=== PATIENT | male | born 1960 | race African-American/Black ===

== ENCOUNTER 2018-11-13 10:26 | Observation (INO) ==
--- NOTE | 2018-11-13 10:45 | Emergency Department Note ---
Disposition Clinical Impression: Hypertension Chest pain Qualifiers: Chest pain type: unspecified Qualified Code(s): R07.9 - Chest pain, unspecified Diabetes Qualifiers: Diabetes mellitus type: type 2 Diabetes mellitus meterman insulin use: without meterman use Diabetes mellitus complication status: without complication Qualified Code(s): E11.9 - Type 2 diabetes mellitus without complications Disposition: Admitted As Inpatient Condition: Fair Referrals: NONE,PCP [Primary Care Provider] - Forms: ED Satisfaction Letter Time of Disposition: 11:32 General Adult HPI - General Chief complaint: ED Arrhythmia/Palpitations Stated complaint: SVT Time Seen by Provider: 11/13/18 10:33 Source: patient, other Limitations: no limitations Nursing Notes Reviewed: Yes Vital Signs Reviewed: Yes - History of Present Illness HPI Narrative: I did speak with the patient and saw him immediately upon arrival and also spoke with the [facility] the patient is coming [facility] he has been since April and he has a history of hypertension but no history of coronary disease and he presents today with complaint of chest pressure which began between 9 and 9:15 this morning and began gradually and is constant and generalized with associated diaphoresis and dyspnea but no pleuritic aspect or radiation or any pain or swelling of the lower extremities. It is exertional. The patient reportedly from the [facility] had a heart rate of 202 bpm so they gave him atenolol as they did not have a nurse that came until 11:00 and then they recheck the pulse 20 minutes later and it was only down to 197 bpm and so they transported the patient here. The patient does not have a history of SVT but does have a history of irregular heartbeats. Social history: No smoking or alcohol. Family history: Positive for heart disease Pain Scale: 0 - Related Data Home Medications Medication Instructions Recorded Confirmed Aspirin [Lo-Dose Aspirin EC] 81 mg PO DAILY 11/13/18 11/13/18 Atenolol [Tenormin] 25 mg PO BID 11/13/18 11/13/18 BuPROPion SR (12 HR) [Wellbutrin 100 mg PO DAILY 11/13/18 11/13/18 SR] GlipiZIDE [Glucotrol] 5 mg PO BIDWM 11/13/18 11/13/18 Metformin HCl 1,000 mg PO BID 11/13/18 11/13/18 Omeprazole [PriLOSEC] 20 mg PO DAILY 11/13/18 11/13/18 Prazosin HCl [Minipress] 2 mg PO DAILY 11/13/18 11/13/18 Allergies Allergy/AdvReac Type Severity Reaction Status Date / Time No Known Allergies Allergy Verified 11/13/18 10:34 Review of Systems: Constitutional: No fever Vision: No blurred vision ENT: No rhinorrhea Respiratory: No cough Allergic: No allergies : No blood in urine GI: No blood in stool Hematologic: No bruising Dermatologic: No skin rash Musculoskeletal: No pain in the extremities Neuro: No numbness of the extremities at this time however initially did have a little bit of numbness of the left leg Past Medical History - Past Medical History Medical history: Reports: hypertension Psychiatric history: Reports: no psych history - Social History Smoking Status: Former smoker Smokeless Tobacco Status: No Alcohol use: Reports: none Drug use: Reports: none Physical Exam CONSTITUTIONAL: Alert and oriented X3, well-nourished, well appearing, in no apparent distress HEAD: Normocephalic; atraumatic. EYES: PERRL, no scleral icterus. NOSE: The nose is normal in appearance without rhinorrhea RESP: Normal chest excursion with respiration; breath sounds clear and equal bilaterally; no wheezes, rhonchi, or rales CARD: Regular rhythm, without murmurs, rub or gallop ABD: Non-distended; non-tender, soft,without rigidity, rebound or guarding SKIN: Normal for age and race; warm and dry; no apparent lesions EXTREMITIES: Pulses are 2 plus and equal times 4 extremities, no peripheral edema or calf muscle pain. - General Limitations: no limitations General appearance: alert, in no apparent distress Course Vital Signs Temperature 97.0 F L 11/13/18 10:28 Pulse Rate 80 11/13/18 10:28 Respiratory Rate 18 11/13/18 10:28 Blood Pressure 155/98 11/13/18 10:28 O2 Sat by Pulse Oximetry 98 11/13/18 10:28 Temperature 97.0 F L 11/13/18 10:28 Pulse Rate 75 11/13/18 11:06 Respiratory Rate 22 11/13/18 11:06 Blood Pressure 133/96 11/13/18 11:06 O2 Sat by Pulse Oximetry 97 11/13/18 11:06 Oxygen Delivery Oxygen Delivery Room Air Medical Decision Making - MDM Narrative Medical decision making narrative: I did review the patient's EKG showing normal sinus rhythm with a rate of 80 without acute ischemic change or evidence of arrhythmia or tachycardia. The patient's symptoms are concerning and recent in onset and for that reason initial evaluation will include troponin tests and chest x-ray and the patient will be admitted to the hospital for further cardiac evaluation. 1046 I rev the test results and second ECG showing NSR with rate of 73 and nonspec change in aVF. I spoke with Dr. Loaiza who accepts for admission 1130 - Medical Records Medical records reviewed: Yes I reviewed the patient's medical records. - Lab Data Lab results reviewed: Yes I reviewed the patient's lab results. Result diagrams: 11/13/18 10:32 11/13/18 10:32 Lab Results 11/13/18 11/13/18 Range/Units 10:32 10:32 WBC 7.5 (4.3-11.1) K/mcL RBC 4.46 (4.19-5.50) M/mcL Hgb 12.6 L (12.9-16.9) g/dL Hct 40.5 (37.5-50.1) % MCV 90.8 (83.0-100.0) fL MCH 28.3 (28.0-33.3) pg MCHC 31.1 L (31.6-35.5) g/dL RDW 12.5 (11.5-14.5) % Plt Count 335 (140-400) K/mcL MPV 10.4 (9.4-12.4) fL Sodium 140 (136-145) mEq/L Potassium 3.9 (3.5-5.1) mEq/L Chloride 98 (98-107) mEq/L Carbon Dioxide 28 (23-29) mEq/L BUN 12 (6-20) mg/dL Creatinine 1.10 (0.70-1.30) mg/dL Est GFR ( Amer) > 60 (> 60) Est GFR (Non-Af Amer) > 60 (> 60) BUN/Creatinine Ratio 11 (6-26) Glucose 260 H (70-105) mg/dL Calculated Osmolality 299 (280-300) Calcium 9.3 (8.6-10.3) mg/dL Troponin I < 0.03 (< 0.04) ng/mL - Radiology Data Radiology results reviewed: Yes I reviewed the patient's radiology results.
[2018-11-13 10:47] LABS: Hematocrit 40.5 % (37.5-50.1); Hemoglobin 12.6 g/dL (12.9-16.9); Mean Corpuscular HGB Conc 31.1 g/dL (31.6-35.5); Mean Corpuscular Hemoglobin 28.3 pg (28.0-33.3); Mean Corpuscular Volume 90.8 fL (83.0-100.0); Mean Platelet Volume 10.4 fL (9.4-12.4); Platelet Count 335 K/mcL (140-400); Red Blood Count 4.46 M/mcL (4.19-5.50); Red Cell Distribution Width 12.5 % (11.5-14.5); White Blood Count 7.5 K/mcL (4.3-11.1)
[2018-11-13 11:08] LABS: BUN/Creatinine Ratio 11 (6-26); Blood Urea Nitrogen 12 mg/dL (6-20); Calcium 9.3 mg/dL (8.6-10.3); Carbon Dioxide 28 mEq/L (23-29); Chloride 98 mEq/L (98-107); Glucose 260 mg/dL (70-105); Osmolality,Calculated 299 (280-300); Potassium 3.9 mEq/L (3.5-5.1); Sodium 140 mEq/L (136-145); Troponin I < 0.03 ng/mL (< 0.04); eGFR For African Americans > 60 (> 60); eGFR For Non-African Americans > 60 (> 60)
[2018-11-13] MEDS ORDERED: Naloxone 0.4 MG/ML INJ IVP PRN (11:20)
[2018-11-13] MEDS ORDERED: Nitroglycerin 0.4 MG TAB.SUBL SL PRN (11:23)
[2018-11-13] MEDS ORDERED: *HR* Metoprolol 5 MG/5 ML VIAL IVP PRN (11:23)
--- NOTE | 2018-11-13 11:25 | Internal Med History&Physical ---
Date of Encounter: 11/13/18 Time of Encounter: 11:25 Internal Medicine - H&P: HPI History of present illness: Mr. Yanez is a 57 year old male with history of hypertension and diabetes presented to ED for onset of chest pain that started at 9 am today. Patient states it is a squeezing sensation that is substernal with radiation to left arm with some numbness and tingling, brief shortness of breath, and diaphoresis. No alleviating or exacerbating factors. [facility] and his heart rate was checked there and it was reported to be 202 bpm and so was given 50 mg of atenolol, which is higher than his 25 mg BID dose. Patient upon arrival has a normal heart rate and blood pressure. Initial troponin was negative and an ECG showed normal sinus rhythm. Patient states he currently has no chest pain. Past Med Surg Social Fam HX - Past Medical History Medical history: hypertension Psychiatric history: no psych history - Social History Smoking Status: Former smoker Smokeless Tobacco Status: No Alcohol use: none Drug use: none Internal Medicine - H&P: Meds Aspirin [Lo-Dose Aspirin EC] 81 mg PO DAILY 11/13/18 [History] Atenolol [Tenormin] 25 mg PO BID 11/13/18 [History] BuPROPion SR (12 HR) [Wellbutrin SR] 100 mg PO DAILY 11/13/18 [History] GlipiZIDE [Glucotrol] 5 mg PO BIDWM 11/13/18 [History] Metformin HCl 1,000 mg PO BID 11/13/18 [History] Omeprazole [PriLOSEC] 20 mg PO DAILY 11/13/18 [History] Prazosin HCl [Minipress] 2 mg PO DAILY 11/13/18 [History] Allergy/AdvReac Type Severity Reaction Status Date / Time No Known Allergies Allergy Verified 11/13/18 10:34 All Systems PM: A 10-system review of systems was performed and is negative for pertinent findings except as documented above in the HPI. - Constitutional Constitutional: no chills, no fever(s), no night sweats - EENT Eyes: no change in vision, no discharge, no pain, no photophobia Ears: no ear discharge, no ear pain, no tinnitus Nose, mouth and throat: no dysphagia, no nasal discharge, no neck pain, no sore throat - Cardiovascular Cardiovascular ROS IM: chest pain, diaphoresis, lightheadedness, palpitations, no claudication, no dyspnea, no syncope - Respiratory Respiratory: no cough, no dyspnea, no wheezing, no excessive phlegm production - Gastrointestinal Gastrointestinal: no abdominal pain, no diarrhea, no hematemesis, no hematoc hezia, no melena, no nausea, no vomiting - Musculoskeletal Musculoskeletal ROS IM: no numbness, no tingling - Integumentary Integumentary IM: no rash, no unusual bruising - Neurological Neurological ROS: no confusion, no convulsions, no focal weakness, no numbness, no tingling, no tremor(s) - Hematologic/Lymphatic Hematologic/Lymphatic: no easy bruising - Constitutional Vitals: Temp Pulse Resp BP Pulse Ox 97.0 F L 75 22 133/96 97 11/13/18 10:28 11/13/18 11:06 11/13/18 11:06 11/13/18 11:06 11/13/18 11:06 General appearance: Present: A&O X 3, obese Exam: . - Head Head exam: Present: atraumatic, normocephalic - Eye Eye exam: Present: PERRL, conjuntiva pink, sclera anicteric Pupils: Present: PERRL - Neck Neck exam general surgery: Present: supple, trachea midline. Absent: lymp hadenopathy - Respiratory Respiratory exam: Present: CTAB. Absent: accessory muscle use, rales, rhonchi, wheezes - Cardiovascular Cardiovascular exam: Present: RRR, +S1, +S2. Absent: diastolic murmur, gallop, rubs, systolic murmur - GI/Abdominal GI/Abdominal exam: Present: normal bowel sounds, soft, no peritoneal signs. Absent: distended, tenderness - Extremities Exam Extremities exam: Present: warm, radial pulses palpable and symmetrical. Absent: calf tenderness, cyanotic, pedal edema - Neurological Exam Neurological exam: Present: CN II-XII intact, oriented X3, no focal deficits. Absent: pronater drift, facial droop, speech deficit - Skin Skin exam: Present: dry, intact Internal Med - H&P Results - Labs CBC & Chem 7: 11/13/18 10:32 11/13/18 10:32 Labs: Short CBC 11/13/18 Range/Units 10:32 WBC 7.5 (4.3-11.1) K/mcL Hgb 12.6 L (12.9-16.9) g/dL Hct 40.5 (37.5-50.1) % Plt Count 335 (140-400) K/mcL BMP 11/13/18 10:32 Sodium 140 Potassium 3.9 Chloride 98 Carbon Dioxide 28 BUN 12 Creatinine 1.10 Glucose 260 H Calcium 9.3 Cardiac Enzymes 11/13/18 Range/Units 10:32 Troponin I < 0.03 (< 0.04) ng/mL - Impressions ITS Impressions Chest X-Ray 11/13/18 10:33 IMPRESSION: 1. Low lung volumes, with mild right basilar airspace opacity, most likely reflecting atelectasis, less likely pneumonia. 2. Mild cardiomegaly. D/ / 11/13/2018 11:02:42 Wagner Dumont MD / [facility] Interpreting Provider: Wagner Dumont MD - Assessment and Plan (1) Chest pain Current Visit: Yes Status: Acute Assessment and plan: Will need to rule out ACS given heart score of 5. Currently no chest pain or palpitations, was given 50 mg dose of atenolol today instead of 25 mg prior to arrival so will need to monitor patient during this time on his regular schedule atenolol doses. - Cycle cardiac enzymes - 2D echocardiogram - TSH, urine drug screen. - lisinopril IV q6H prn. 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 insulin use: wit hout group home use Diabetes mellitus complication status: without complication Qualified Code(s): E11.9 - Type 2 diabetes mellitus without complications (3) Hypertension Current Visit: Yes Status: Acute Assessment and plan: resume atenolol Qualifiers: Hypertension type: essential hypertension Qualified Code(s): I10 - Essential (primary) hypertension (4) DVT prophylaxis Current Visit: Yes Status: Acute Assessment and plan: heparin SQ - Time Spent With Patient Total time spent is greater than 50% in coordination of care (as documented) at patient's floor/unit and/or counseling patient:
[2018-11-13 12:15] LABS: Amphetamine Screen,Urine Negative ng/mL (Cutoff=1000); Barbiturate Screen,Urine Negative ng/mL (Cutoff=200); Benzodiazepines Screen,Urine Negative ng/mL (Cutoff=200); Cannabinoid Screen,Urine Negative ng/mL (Cutoff = 50); Cocaine Screen,Urine Negative ng/mL (Cutoff= 300); Opiate Screen,Urine Negative ng/mL (Cutoff=300); Phencyclidine Screen,Urine Negative ng/mL (Cutoff=25)
[2018-11-13] MEDS: Insulin LISPRO 300 UNITS/3 ML VIAL SQ SCH ×3 (12:56→20:48)
[2018-11-13] MEDS: *HR* Heparin 5,000 UNIT/ML VIAL SQ SCH (17:38)
[2018-11-14] MEDS: *HR* Heparin 5,000 UNIT/ML VIAL SQ SCH ×2 (06:29→17:42)
[2018-11-14] MEDS: Aspirin Enteric Coated 81 MG Tablet PO SCH (07:53)
[2018-11-14] MEDS: BuPROPion SR (12 HR) 100 MG TABLET PO SCH (07:53)
[2018-11-14] MEDS: hydroCHLOROthiazide 25 MG TABLET PO SCH (09:18)
[2018-11-14] MEDS: Lisinopril 20 MG TABLET PO SCH (09:18)
[2018-11-14] MEDS: Cholecalciferol (D-3) 1,000 UNIT (25MCG) TABLET PO SCH (09:18)
[2018-11-14] MEDS: Insulin LISPRO 300 UNITS/3 ML VIAL SQ SCH ×4 (09:19→20:30)
[2018-11-14] MEDS: amLODIPine 5 MG TABLET PO SCH (09:20)
--- NOTE | 2018-11-14 10:01 | Internal Med Progress Note ---
Hospitalist Progress Note - Encounter Date of Encounter: 11/14/18 Time of Encounter: 09:59 - Subjective Interval History: Patient was seen and examined in the room. He reported multiple chest pain in the past was tachycardia, also reported once minor heart attack in the past. He is supposed to follow-up cardiology at the [facility] but never went there. He currently has no chest pain, palpitation, or syncope. He reported absence of shortness breath, cough, or wheezing. Patient also reported mental health issues and wanted to talk to psychiatry. - Exam Vitals: Temp Pulse Resp BP Pulse Ox 98.1 F 63 8 149/99 95 11/14/18 07:02 11/14/18 07:02 11/14/18 07:02 11/14/18 07:02 11/14/18 07:02 Exam: PHYSICAL EXAMINATION: GENERAL APPEARANCE: The patient is alert, oriented and in no acute distress. HEENT: Head is normocephalic. The sinuses are nontender. Pupils are equal and reactive. The nares are patent. Oropharynx clear without lesions. NECK: Supple without lymphadenopathy. HEART: Regular rate and rhythm. LUNGS: No crackles or wheezes are heard. ABDOMEN: Soft, nontender, nondistended with good bowel sounds heard. Inguinal area is normal. EXTREMITIES: Without cyanosis, clubbing or edema. NEUROLOGICAL: Gross nonfocal. SKIN: Warm and dry without any rash. - Assessment and Plan (1) Chest pain Current Visit: Yes Status: Acute Assessment and Plan: 11/13 Will need to rule out ACS given heart score of 5. Currently no chest pain or palpitations, was given 50 mg dose of atenolol today instead of 25 mg prior to arrival so will need to monitor patient during this time on his regular schedule atenolol doses. - Cycle cardiac enzymes - 2D echocardiogram - TSH, urine drug screen. - lisinopril IV q6H prn. 11/14 TSH normal, urine drug screen negative. Troponin was slightly elevated at 0.05. Echocardiogram was performed this morning, results are pending. We will consult cardiology. (2) Diabetes Current Visit: No Status: Chronic Assessment and Plan: diabetic diet, ISS (3) Hypertension Current Visit: No Status: Chronic Assessment and Plan: resume atenolol (4) DVT prophylaxis Current Visit: Yes Status: Acute Assessment and Plan: heparin SQ - Time Spent with Patient Total time spent is greater than 50% in coordination of care (as documented) at patient's floor/unit and/or counseling patient: Greater than 35 minutes Plan of Care Discussed with: patient Internal Medicine: Result - Labs CBC & Chem 7: 11/13/18 10:32 11/13/18 10:32 Labs: Short CBC 11/13/18 Range/Units 10:32 WBC 7.5 (4.3-11.1) K/mcL Hgb 12.6 L (12.9-16.9) g/dL Hct 40.5 (37.5-50.1) % Plt Count 335 (140-400) K/mcL BMP 11/13/18 10:32 Sodium 140 Potassium 3.9 Chloride 98 Carbon Dioxide 28 BUN 12 Creatinine 1.10 Glucose 260 H Calcium 9.3 Cardiac Enzymes 11/13/18 11/13/18 11/14/18 Range/Units 10:32 16:52 00:43 Troponin I < 0.03 0.05 H* 0.05 H* (< 0.04) ng/mL - ABG Interpretation ABG results: PT/INR, D-dimer D-Dimer 410 ng/mLFEU (0-500) 11/13/18 16:52 - Impressions Impressions Chest X-Ray 11/13/18 10:33 IMPRESSION: 1. Low lung volumes, with mild right basilar airspace opacity, most likely reflecting atelectasis, less likely pneumonia. 2. Mild cardiomegaly. 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
--- NOTE | 2018-11-14 11:28 | Consult Note ---
Date of Encounter: 11/14/18 Time of Encounter: 11:30 Assessment & Recommendation (1) Major depressive disorder Current visit: Yes Status: Acute Assessment & Recommendation: -patient has a Hx of MDD. He was diagnosed with this condition 2009 and is on bupropion, Wellbutrin 100 mg, Prozac 40 mg. Patient lost access to his medication because he was incarcerated for the last 6 months. Patient was endrosing suicidal ideation when I saw him this morning. -Recommendations are to start him on his Prozac at 20 mg right now for at least 2 weeks and then bump it to 40 mg thereafter -Since patient who comes to us from the alf, he can go to [facility] for his [facility] health needs in the future if his symptoms resolve after being on Prozac Qualifiers: Qualified Code(s): F32.9 - Major depressive disorder, single episode, unspecified (2) PTSD (post-traumatic stress disorder) Current visit: Yes Status: Acute Assessment & Recommendation: Patient has a history of PTSD. He endorses 3-4 episodes of flash bag every week. Will recommend resuming patient on his home medications. History of Present Illness Requesting Physician: Paola Rendon MD Reason for consult: depression History of present illness: Mr. Yanez is a 57 year old male with a past medical history of depression, PTSD, obstructive sleep apnea, DM2 who initially came to the ED because of chest pain with troponin's value of 0.05. Psychiatry was consulted because of patient's chronic depression and PTSD. Patient takes bupropione, Prozac 40 mg, Wellbutrin 100 mg, trazodone 100 mg for his symptoms. He was recently incarcerated because of aggravated robbery and was in alf for the last 6 months where he did not have access to his regular medications. Patient has a family history of depression (mom). He last saw his psychiatrist almost 6 months ago at the [facility] and no changes were made to his medications. He has had multiple suicidal attempts. His last suicide attempt was in January 2018 that when he tried to overdose on his pills. Prior to that she try to cut his wrist, and had had tried overdosing prior to that. He endorses that he has had 3-4 episodes per week of flashbacks, which got baggravated while he was in the alf. He is carrying with him a note that explains his suicidal ideation when he was in alf and expressed concerns that he was not getting his proper medications and counselling . He was in A&O 3 when saw him this morning. He had good eye contact , speech was normal and was in good mentation. CC: Paola Rendon MD Past Med Surg Social Fam HX - Past Medical History Medical history: diabetes, hypertension - Past Surgical History Surgical History: no surgical history - Social History Smoking Status: Former smoker Smokeless Tobacco Status: No Alcohol use: none Drug use: none - Family History Mother Living Status: Cause of : CHF Hx Family Cardiac Disorders: Yes Hx Family Endocrine Disorder: Yes (DM) Medications & Allergies Aspirin [Lo-Dose Aspirin EC] 81 mg PO DAILY 11/13/18 [History] GlipiZIDE [Glucotrol] 5 mg PO BIDWM 11/13/18 [History] Metformin HCl 1,000 mg PO BID 11/13/18 [History] Omeprazole [PriLOSEC] 20 mg PO DAILY 11/13/18 [History] Atenolol [Tenormin] 25 mg PO DAILY PRN 11/14/18 [History] Atorvastatin Calcium [Lipitor] 80 mg PO HS 11/14/18 [History] Buspirone HCl [Buspar] 5 mg PO TID 11/14/18 [History] Cholecalciferol (D-3) [Vitamin D] 1,000 unit PO DAILY 11/14/18 [History] Lisinopril [Zestril] 40 mg PO DAILY 11/14/18 [History] Prazosin [Minipress] 3 mg PO HS 11/14/18 [History] amLODIPine [Norvasc] 5 mg PO DAILY 11/14/18 [History] hydroCHLOROthiazide [Hydrochlorothiazide] 12.5 mg PO DAILY 11/14/18 [History] Allergy/AdvReac Type Severity Reaction Status Date / Time No Known Allergies Allergy Verified 11/13/18 10:34 Review of Systems Constitutional: Denies: fever, chills, weakness, weight change Eyes: Denies: eye pain, vision change Ears, Nose, Throat: Denies: ear pain, throat pain, dental pain, hearing loss, congestion Cardiovascular: Denies: chest pain, palpitations, dyspnea on exertion Respiratory: Denies: cough, dyspnea, wheezes Gastrointestinal: Denies: abdominal pain, nausea, vomiting, diarrhea, constip ation Genitourinary male: Denies: urgency, dysuria, frequency, genital lesions Musculoskeletal: Denies: joint swelling, joint pain Integumentary: Denies: rash, lesions, pruritus Neurological: Denies: headache, weakness, numbness, memory loss Endocrine: Denies: fatigue, heat or cold intolerance Hematologic/Lymphatic: Denies: easy bruising, lymphadenopathy Allergic/Immunologic: Denies: urticaria, itchy eyes Psychiatry Exam - Constitutional Vitals: Temp Pulse Resp BP Pulse Ox 98.1 F 63 8 149/99 95 11/14/18 07:02 11/14/18 07:02 11/14/18 07:02 11/14/18 07:02 11/14/18 07:02 General appearance: age & developmentally appropriate, well-groomed, well- nourished - Musculoskeletal Gait: normal Station: relaxed Strength & Tone: normal for patient - Psychiatric Patient Orientation: Yes Person, Yes Time, Yes Place Level of alertness: Alert Behavior: calm, cooperative Psychomotor activity: Normal Eye Contact: Maintains Eye Contact Mood Description: Euthymic/stable Affect description: congruent with mood, full range Speech Volume: Normal Speech pattern: normal rate, normal rhythm, normal tone, fluent, spontaneous Language & Vocabulary: consistent with education Thought Process: Linear, Goal Oriented Thought Content: No Suicidal ideation, No Homicidal ideation, No Overt delusions Perceptual Disturbances: No Auditory hallucinations, No Visual hallucinations Attention Span Ability: Capable of Focused Attention Memory Description: Grossly Intact Patient Reliability: Reliable Historian Fund of knowledge: Yes abstraction ability, Yes aware of current events Intelligence Estimate: Average Judgment: Limited Insight: Partial Results - Drug Levels and Toxicology Drug Levels and Toxicology: Drug Levels and Toxicity 11/13/18 11:54 Urine Opiates Screen Negative Ur Barbiturates Screen Negative Ur Phencyclidine Scrn Negative Ur Amphetamines Screen Negative U Benzodiazepines Scrn Negative Urine Cocaine Screen Negative U Marijuana (THC) Screen Negative - Labs Labs: Laboratory Last Values WBC 7.5 K/mcL (4.3-11.1) 11/13/18 10:32 RBC 4.46 M/mcL (4.19-5.50) 11/13/18 10:32 Hgb 12.6 g/dL (12.9-16.9) L 11/13/18 10:32 Hct 40.5 % (37.5-50.1) 11/13/18 10:32 MCV 90.8 fL (83.0-100.0) 11/13/18 10:32 MCH 28.3 pg (28.0-33.3) 11/13/18 10:32 MCHC 31.1 g/dL (31.6-35.5) L 11/13/18 10:32 RDW 12.5 % (11.5-14.5) 11/13/18 10:32 Plt Count 335 K/mcL (140-400) 11/13/18 10:32 MPV 10.4 fL (9.4-12.4) 11/13/18 10:32 D-Dimer 410 ng/mLFEU (0-500) 11/13/18 16:52 Sodium 140 mEq/L (136-145) 11/13/18 10:32 Potassium 3.9 mEq/L (3.5-5.1) 11/13/18 10:32 Chloride 98 mEq/L (98-107) 11/13/18 10:32 Carbon Dioxide 28 mEq/L (23-29) 11/13/18 10:32 BUN 12 mg/dL (6-20) 11/13/18 10:32 Creatinine 1.10 mg/dL (0.70-1.30) 11/13/18 10:32 Est GFR ( Amer) > 60 (> 60) 11/13/18 10:32 Est GFR (Non-Af Amer) > 60 (> 60) 11/13/18 10:32 BUN/Creatinine Ratio 11 (6-26) 11/13/18 10:32 Glucose 260 mg/dL (70-105) H 11/13/18 10:32 POC Glucose 241 mg/dL (70-99) H 11/13/18 18:55 Calculated Osmolality 299 (280-300) 11/13/18 10:32 Calcium 9.3 mg/dL (8.6-10.3) 11/13/18 10:32 Troponin I 0.05 ng/mL (< 0.04) H* 11/14/18 00:43 TSH 1.461 mcIU/mL (0.340-5.600) 11/13/18 16:52 Urine Opiates Screen Negative ng/mL (Rmezgf=604) 11/13/18 11:54 Ur Buprenorphine Scrn Negative ng/mL (Cutoff=5) 11/13/18 11:54 Ur Barbiturates Screen Negative ng/mL (Stmxvo=232) 11/13/18 11:54 Ur Phencyclidine Scrn Negative ng/mL (Cutoff=25) 11/13/18 11:54 Ur Amphetamines Screen Negative ng/mL (Evyknh=0415) 11/13/18 11:54 U Benzodiazepines Scrn Negative ng/mL (Ucmpvk=502) 11/13/18 11:54 Urine Cocaine Screen Negative ng/mL (Cutoff= 300) 11/13/18 11:54 U Marijuana (THC) Screen Negative ng/mL (Cutoff = 50) 11/13/18 11:54 Ur Drug Screen Interp See Below 11/13/18 11:54 - Impressions Impressions Chest X-Ray 11/13/18 10:33 IMPRESSION: 1. Low lung volumes, with mild right basilar airspace opacity, most likely reflecting atelectasis, less likely pneumonia. 2. Mild cardiomegaly. D/ / 11/13/2018 11:02:42 Wagner Dumont MD / [facility] Interpreting Provider: Wagner Dumont MD Consult Discharge Plan - Plan Additional Instructions: Patient has endorsed suicidal thoughts without a plan while in [place]. Recommend placing him on suicide precautions per alf protocol for this. Also recommend having said a [facility] mental health see him. Psychiatry at [place] recommended he be started on 20 mg of Prozac daily and this be increased to 40 mg in 2 weeks. Referrals: NONE,PCP [Primary Care Provider] - - Attending Attestation I examined this patient and my medical decision-making was reviewed with the Resident Physician. I agree with the documented findings, disposition and treatment plan as described except to the extent set forth below. Agree with mental status and plan. Patient is from the alf and his prior meds are not on formulary. Recommend Prozac 20mg QAM and alf can titrate up to 40mg in 2 weeks. The ail [facility] so [facility] should see him when he returns and he should be placed on alf suicide precautions.
--- NOTE | 2018-11-14 14:12 | Electrocardiograph Report ---
[address] [place], [place] [address] Test Date: 2018-11-13 Pat Name: Jomar Yanez Department: [id number] Room: 3B Gender: M Director Center: : 1960 Requested By: Micheal Minor Order Number: [id number] Reading MD: Anthony Boggs Measurements Intervals [place] Rate: 80 P: 18 IN: 168 QRS: -39 QRSD: 103 T: 9 QT: 383 QTc: 442 Interpretive Statements Sinus rhythm Incomplete RBBB and LAFB Electronically Signed On 11-14-2018 14:10:50 EDT by Anthony Boggs
[2018-11-15 05:38] LABS: Basophils % 0.7 %; Eosinophils # 0.3 K/mcL (0.0-0.6); Eosinophils % 4.9 %; Hematocrit 34.9 % (37.5-50.1); Immature Granulocytes % 0.3 % (0-4); Lymphocytes # 1.9 K/mcL (0.6-4.6); Lymphocytes % 31.9 %; Mean Corpuscular HGB Conc 31.2 g/dL (31.6-35.5); Mean Corpuscular Hemoglobin 28.7 pg (28.0-33.3); Mean Corpuscular Volume 91.8 fL (83.0-100.0); Mean Platelet Volume 10.3 fL (9.4-12.4); Monocytes # 0.4 K/mcL (0.0-1.3); Monocytes % 7.5 %; Neutrophils # 3.2 K/mcL (1.6-8.9); Platelet Count 273 K/mcL (140-400); Red Cell Distribution Width 12.2 % (11.5-14.5); Segmented Neutrophils % 54.7 %; White Blood Count 5.9 K/mcL (4.3-11.1)
[2018-11-15 05:40] LABS: BUN/Creatinine Ratio 18 (6-26); Blood Urea Nitrogen 17 mg/dL (6-20); Carbon Dioxide 30 mEq/L (23-29); Chloride 99 mEq/L (98-107); Glucose 354 mg/dL (70-105); Osmolality,Calculated 304 (280-300); Potassium 3.7 mEq/L (3.5-5.1); Sodium 139 mEq/L (136-145); eGFR For African Americans > 60 (> 60); eGFR For Non-African Americans > 60 (> 60)
[2018-11-15 05:41] LABS: Hemoglobin 10.9 g/dL (12.9-16.9)
[2018-11-15] MEDS: *HR* Heparin 5,000 UNIT/ML VIAL SQ SCH ×2 (06:17→16:45)
--- NOTE | 2018-11-15 06:32 | Electrocardiograph Report ---
[employer] Test Date: 2018-11-13 Pat Name: Jomar Yanez Department: [id number] Room: 3B38 Gender: M Account Information Clerk: : 1960 Requested By: Micheal Minor Order Number: [id number] Reading MD: Eliecer Jhaveri Measurements Intervals [place] Rate: 73 P: -4 AK: 177 QRS: -33 QRSD: 101 T: 9 QT: 382 QTc: 421 Interpretive Statements Sinus rhythm Electronically Signed On 11-15-2018 6:30:20 EDT by Eleicer Jhaveri
[2018-11-15] MEDS ORDERED: Regadenoson 0.4 MG/5 ML SYRINGE IVP ONE (08:44)
[2018-11-15] MEDS: Insulin LISPRO 300 UNITS/3 ML VIAL SQ SCH ×4 (09:48→21:30)
[2018-11-15] MEDS: hydroCHLOROthiazide 25 MG TABLET PO SCH (11:07)
[2018-11-15] MEDS: Cholecalciferol (D-3) 1,000 UNIT (25MCG) TABLET PO SCH (11:07)
[2018-11-15] MEDS: FLUoxetine 20 MG CAPSULE PO SCH (11:07)
[2018-11-15] MEDS: Aspirin Enteric Coated 81 MG Tablet PO SCH (11:08)
[2018-11-15] MEDS: BuPROPion SR (12 HR) 100 MG TABLET PO SCH (11:08)
[2018-11-15] MEDS: Lisinopril 20 MG TABLET PO SCH (11:08)
[2018-11-15] MEDS: amLODIPine 5 MG TABLET PO SCH (12:43)
--- NOTE | 2018-11-15 13:08 | Cardiology Consult Note ---
<Marlon Justin - Last Filed: 11/15/18 13:06> Date of Encounter: 11/15/18 Time of Encounter: 13:06 Assessment and Plan (1) Chest pain Current Visit: Yes Status: Acute C/o intermittent chest pain and palpitations. HR reported to be 200 on pulse ox. Mild adynamic troponin elevation 0.03, 0.05, 0.05. Non diagnostic in setting of tachycardia. Cardiac risk factors include HTN, DM type II, HLD, and family history. Agree with LEONARDO and stress test. LEONARDO-LVEF 60%. Mild concentric left ventricular hypertrophy. Normal LV chamber size, wall thickness and function. Normal right ventricular structure and function. Mild tricuspid regurgitation. No evidence of pulmonary hypertension. 24 hour telemetry review shows NSR. No concerning arrhythmias. 2-day stress test pending. If normal recommended out-pt 2 week event monitor at discharge and out pt follow-up. Continue asa, statin, and bb. Call with questions. Qualifiers: Chest pain type: unspecified Qualified Code(s): R07.9 - Chest pain, unspecified Discussion w patient/family: The assessment and plan as outlined above was discussed with the patient and/or family members who expressed understanding and agreement. All questions were answered. Thank you for involving us in the care of your patient. Please call with any questions. History of Present Illness Consult date: 11/15/18 Requesting physician: Paola Rendon Consult reason: Chest pain, elevated troponin Chief complaint: CP History of present illness: Mr. Yanez is a 57 year old male with past medical history significant for HTN, DM type II, HLD, and obesity who presents with chest pain and tachycardia. C/o intermittent midstarnal chest discomfort and palpitations for one month. Pain occurs at rest or wakes him from his sleep. He is currently incarcerated. Yesterday when he developed symptoms the nurse checked his HR and found it to be 200 on a pulse ox. He was sent to the ED. HR was normal on time of arrival. Cardiology consulted for elevated troponin at 0.05 x2. He is currently pain free. Denies SOB, orthopnea, weight gain, or edema. Denies syncope. Past Med Surg Social Fam HX - Past Medical History Medical history: diabetes, hypertension Additional medical history: LUZ Psychiatric history: no psych history - Past Surgical History Surgical History: no surgical history - Social History Smoking Status: Former smoker Smokeless Tobacco Status: No Alcohol use: none Drug use: none - Family History Mother Living Status: Cause of : CHF Hx Family Cardiac Disorders: Yes Hx Family Endocrine Disorder: Yes (DM) Medications and Allergies Aspirin [Lo-Dose Aspirin EC] 81 mg PO DAILY 11/13/18 [History] GlipiZIDE [Glucotrol] 5 mg PO BIDWM 11/13/18 [History] Metformin HCl 1,000 mg PO BID 11/13/18 [History] Omeprazole [PriLOSEC] 20 mg PO DAILY 11/13/18 [History] Atenolol [Tenormin] 25 mg PO DAILY PRN 11/14/18 [History] Atorvastatin Calcium [Lipitor] 80 mg PO HS 11/14/18 [History] Buspirone HCl [Buspar] 5 mg PO TID 11/14/18 [History] Cholecalciferol (D-3) [Vitamin D] 1,000 unit PO DAILY 11/14/18 [History] Lisinopril [Zestril] 40 mg PO DAILY 11/14/18 [History] Prazosin [Minipress] 3 mg PO HS 11/14/18 [History] amLODIPine [Norvasc] 5 mg PO DAILY 11/14/18 [History] hydroCHLOROthiazide [Hydrochlorothiazide] 12.5 mg PO DAILY 11/14/18 [History] Allergy/AdvReac Type Severity Reaction Status Date / Time No Known Allergies Allergy Verified 11/13/18 10:34 All Systems Review: The remainder of the systems were reviewed and are negative Physical Examination Vital Signs, Last 4 Hours Temp Pulse Resp BP Pulse Ox 11/15/18 11:07 98.1 F 70 15 136/93 97 General: Conversant, No Apparent Distress HEENT: Atraumatic, Normocephaly, Mucus Membranes Moist Neck: No JVD, Normal carotid pulses Cardiac: Reg Rate and Rhythm, Normal S1 and S2, No Murmur Lungs: Normal Breath Sounds, No Wheeze, Rales, Rhonchi Neuro: Alert and responsive, No focal deficits noted Abdomen: Soft, Non-Tender Skin: No rashes noted on visualized skin Musculoskeletal: No Chest Wall Tenderness Extremities: No Clubbing, No Cyanosis, No Edema, Normal Pulses Results 11/15/18 04:56 11/15/18 04:56 Lab Results 11/15/18 11/15/18 04:56 04:56 WBC 5.9 Hgb 10.9 L D Hct 34.9 L Plt Count 273 Sodium 139 Potassium 3.7 Chloride 99 Carbon Dioxide 30 H BUN 17 Creatinine 0.96 Glucose 354 H Calcium 9.0 - Imaging and Cardiology Stress Test: pending Echo: report reviewed - EKG Interpretation EKG results cardiology: personally reviewed Consult Discharge Plan - Plan Additional Instructions: Patient has endorsed suicidal thoughts without a plan while in [place]. Recommend placing him on suicide precautions per detention protocol for this. Also recommend having said a [facility] see him. Psychiatry at [place] recommended he be started on 20 mg of Prozac daily and this be increased to 40 mg in 2 weeks. Referrals: NONE,PCP [Primary Care Provider] - HAS-BLED Score - Score Medication usage predisposing to bleeding: Antiplatelet agents, NSAIDs, Anticoagulants Score: 1 <Cristiano Armijo - Last Filed: 11/15/18 21:52> Date of Encounter: 11/15/18 - Attending Attestation Patient was seen and evaluated independently by me. Findings, assessment and plan were discussed at length with patient, questions answered. Agree with nurse practitioner's/resident's documentation. Addition as follows, 57yo incarcerated CM ho HTN, DM, HLD. P/w intermittent palpitations associated with dizziness and CP 2-3 episodes/month, HR 200s reported at detention. Trop peak 0.05. No ischemic changes on admission ECG. TTE preserved EF, mild cLVH, mild TR. 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 ECG and Tele reviewed. 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 All questions were answered. Thank you for involving us in the care of your patient. Please call with any questions. History of Present Illness History of present illness: Mr. Yanez is a 57 year old male All Systems Review: The remainder of the systems were reviewed and are negative Physical Examination Vital Signs, Last 4 Hours Temp Pulse Resp BP Pulse Ox 11/15/18 19:09 98.2 F 76 18 139/83 98 Results 11/15/18 04:56 11/15/18 04:56 Lab Results 11/15/18 11/15/18 04:56 04:56 WBC 5.9 Hgb 10.9 L D Hct 34.9 L Plt Count 273 Sodium 139 Potassium 3.7 Chloride 99 Carbon Dioxide 30 H BUN 17 Creatinine 0.96 Glucose 354 H Calcium 9.0
--- NOTE | 2018-11-15 13:31 | Internal Med Progress Note ---
Hospitalist Progress Note - Encounter Date of Encounter: 11/15/18 Time of Encounter: 13:29 - Subjective Interval History: Patient was seen and examined in the room. He reported multiple chest pain in the past with tachycardia, also reported one minor heart attack in the past. He currently has no chest pain, palpitation, or syncope. He reported absence of shortness breath, cough, or wheezing. - Exam Vitals: Temp Pulse Resp BP Pulse Ox 98.1 F 70 15 136/93 97 11/15/18 11:11/15/18 11:11/15/18 11:11/15/18 11:11/15/18 11:07 Exam: PHYSICAL EXAMINATION: GENERAL APPEARANCE: The patient is alert, oriented and in no acute distress. HEENT: Head is normocephalic. The sinuses are nontender. Pupils are equal and reactive. The nares are patent. Oropharynx clear without lesions. NECK: Supple without lymphadenopathy. HEART: Regular rate and rhythm. LUNGS: No crackles or wheezes are heard. ABDOMEN: Soft, nontender, nondistended with good bowel sounds heard. Inguinal area is normal. EXTREMITIES: Without cyanosis, clubbing or edema. NEUROLOGICAL: Gross nonfocal. SKIN: Warm and dry without any rash. - Assessment and Plan (1) Chest pain Current Visit: Yes Status: Acute Assessment and Plan: 11/13 Will need to rule out ACS given heart score of 5. Currently no chest pain or palpitations, was given 50 mg dose of atenolol today instead of 25 mg prior to arrival so will need to monitor patient during this time on his regular schedule atenolol doses. - Cycle cardiac enzymes - 2D echocardiogram - TSH, urine drug screen. - lisinopril IV q6H prn. 11/14 TSH normal, urine drug screen negative. Troponin was slightly elevated at 0.05. Echocardiogram was performed this morning, results are pending. We will consult cardiology. 11/15 He currently has no chest pain. Echo results are unremarkable, stress test ordered, pending results. Cardiology following, appreciate help. (2) Major depressive disorder Current Visit: No Status: Acute Assessment and Plan: Psychiatry consulted, who medication resumed, we will will start patient on Pr ozac at 20 mg daily, gradually titrated to 40 mg in 1-2 weeks. Patient mood stable, denies suicidal ideation. (3) PTSD (post-traumatic stress disorder) Current Visit: Yes Status: Acute (4) Diabetes Current Visit: No Status: Chronic Assessment and Plan: diabetic diet, ISS (5) Hypertension Current Visit: No Status: Chronic Assessment and Plan: resume atenolol (6) DVT prophylaxis Current Visit: Yes Status: Acute Assessment and Plan: heparin SQ - Time Spent with Patient Total time spent is greater than 50% in coordination of care (as documented) at patient's floor/unit and/or counseling patient: Greater than 35 minutes Plan of Care Discussed with: patient Internal Medicine: Result - Labs CBC & Chem 7: 11/15/18 04:56 11/15/18 04:56 Labs: Short CBC 11/15/18 Range/Units 04:56 WBC 5.9 (4.3-11.1) K/mcL Hgb 10.9 L D (12.9-16.9) g/dL Hct 34.9 L (37.5-50.1) % Plt Count 273 (140-400) K/mcL Neutrophils # 3.2 (1.6-8.9) K/mcL BMP 11/15/18 04:56 Sodium 139 Potassium 3.7 Chloride 99 Carbon Dioxide 30 H BUN 17 Creatinine 0.96 Glucose 354 H Calcium 9.0 - ABG Interpretation ABG results: PT/INR, D-dimer D-Dimer 410 ng/mLFEU (0-500) 11/13/18 16:52 - Impressions Impressions Echocardiogram 11/14/18 11:36 Impressions: LVEF 60%. Mild concentric left ventricular hypertrophy. Normal LV chamber size, wall thickness and function. Normal right ventricular structure and function. Mild tricuspid regurgitation. No evidence of pulmonary hypertension. Left Ventricular Wall Motion: Rest Echo Findings All wall segments showed normal motion. Findings: Study Quality * Technically adequate exam. ECG Findings * Sinus bradycardia. Left Ventricle * Mild concentric left ventricular hypertrophy. * LVEF 60%. * Normal LV chamber size. Right Ventricle * Normal right ventricular structure and function. Left Atrium * Mildly dilated left atrium. Right Atrium * Normal right atrial size. Aortic Valve * Aortic valve not well visualized. * Trace aortic regurgitation. * No aortic stenosis. Mitral Valve * No mitral regurgitation. * No mitral stenosis. * Normal mitral valve structure. Tricuspid Valve * Mild tricuspid regurgitation. * No tricuspid stenosis. * Normal tricuspid valve structure. * No evidence of pulmonary hypertension. Pulmonic Valve * Pulmonic valve not well visualized. Aorta * Normally sized aortic root. Pericardium * The pericardium appears normal. IVC * Normal IVC dimensions and inspiratory collapse. Pulmonary Artery * Normal visualized portions of the main pulmonary artery. Consult Discharge Plan - Plan Additional Instructions: Patient has endorsed suicidal thoughts without a plan while in [place]. Recommend placing him on suicide precautions per residential protocol for this. Also recommend having said a [facility] see him. Psychiatry at [place] recommended he be started on 20 mg of Prozac daily and this be increased to 40 mg in 2 weeks. Referrals: NONE,PCP [Primary Care Provider] - (1) Chest pain Qualifiers: Chest pain type: unspecified Qualified Code(s): R07.9 - Chest pain, unspecified (4) Diabetes Qualifiers: Diabetes mellitus type: type 2 Diabetes mellitus skilled nursing insulin use: without cloth trimmer hand use Diabetes mellitus complication status: without complication Qualified Code(s): E11.9 - Type 2 diabetes mellitus without complications (5) Hypertension Qualifiers: Hypertension type: essential hypertension Qualified Code(s): I10 - Essential (primary) hypertension
[2018-11-15] MEDS ORDERED: *HR* Adenosine 6 MG/2 ML VIAL IVP ONE (14:04)
--- NOTE | 2018-11-15 14:19 | Event Note ---
Date of Encounter: 11/15/18 Time of Encounter: 14:16 Patient heart rate jumped to 160 on the telemetry, EKG was obtained, reading atrial flutter. Vagal maneuver was tried and failed. 6 mg adenosine IV push was given, patient self converted back to sinus rhythm. No actual atrial wave was noted after the patient was converted. Therefore, the rhythm was SVT, not atrial flutter. Patient already on atenolol, will continue, cardiology consulted, appreciate help.
[2018-11-16 04:59] LABS: Basophils % 0.5 %; Eosinophils # 0.3 K/mcL (0.0-0.6); Eosinophils % 4.8 %; Hematocrit 34.4 % (37.5-50.1); Hemoglobin 10.6 g/dL (12.9-16.9); Immature Granulocytes % 0.3 % (0-4); Lymphocytes # 2.3 K/mcL (0.6-4.6); Lymphocytes % 36.6 %; Mean Corpuscular HGB Conc 30.8 g/dL (31.6-35.5); Mean Corpuscular Hemoglobin 27.7 pg (28.0-33.3); Mean Corpuscular Volume 89.8 fL (83.0-100.0); Mean Platelet Volume 10.6 fL (9.4-12.4); Monocytes # 0.4 K/mcL (0.0-1.3); Monocytes % 6.7 %; Neutrophils # 3.2 K/mcL (1.6-8.9); Platelet Count 279 K/mcL (140-400); Red Blood Count 3.83 M/mcL (4.19-5.50); Red Cell Distribution Width 12.2 % (11.5-14.5); Segmented Neutrophils % 51.1 %; White Blood Count 6.3 K/mcL (4.3-11.1)
[2018-11-16 05:18] LABS: BUN/Creatinine Ratio 17 (6-26); Blood Urea Nitrogen 15 mg/dL (6-20); Carbon Dioxide 29 mEq/L (23-29); Chloride 100 mEq/L (98-107); Glucose 334 mg/dL (70-105); Osmolality,Calculated 298 (280-300); Potassium 3.8 mEq/L (3.5-5.1); Sodium 137 mEq/L (136-145); eGFR For African Americans > 60 (> 60); eGFR For Non-African Americans > 60 (> 60)
[2018-11-16] MEDS: *HR* Heparin 5,000 UNIT/ML VIAL SQ SCH (05:51)
[2018-11-16] MEDS: Cholecalciferol (D-3) 1,000 UNIT (25MCG) TABLET PO SCH (07:57)
[2018-11-16] MEDS: Aspirin Enteric Coated 81 MG Tablet PO SCH (07:57)
[2018-11-16] MEDS: amLODIPine 5 MG TABLET PO SCH (07:57)
[2018-11-16] MEDS: BuPROPion SR (12 HR) 100 MG TABLET PO SCH (07:57)
[2018-11-16] MEDS: Lisinopril 20 MG TABLET PO SCH (07:57)
[2018-11-16] MEDS: FLUoxetine 20 MG CAPSULE PO SCH (07:58)
[2018-11-16] MEDS: hydroCHLOROthiazide 25 MG TABLET PO SCH (07:58)
[2018-11-16] MEDS: Insulin LISPRO 300 UNITS/3 ML VIAL SQ SCH ×2 (07:58→12:16)
--- NOTE | 2018-11-16 11:35 | Cardiology Progress Note ---
Date of Encounter: 11/16/18 Time of Encounter: 11:00 Assessment and Plan (1) Chest pain Current Visit: Yes Status: Acute C/o intermittent chest pain and palpitations. HR reported to be 200 on pulse ox. Mild adynamic troponin elevation 0.03, 0.05, 0.05. Non diagnostic in setting of atrial tachycardia. Cardiac risk factors include HTN, DM type II, HLD, and family history. LEONARDO-LVEF 60%. Mild concentric left ventricular hypertrophy. Normal LV chamber size, wall thickness and function. Normal right ventricular structure and function. Mild tricuspid regurgitation. No evidence of pulmonary hypertension. 24 hour telemetry review shows NSR. No concerning arrhythmias. Stress test negative for ischemia, shows possible prior inferolateral infarct. Patient states that he had "mild heart attack" in the past He denies recurrent chest discomfort. Continue asa, statin, and bb. Cardiology will sign off. Call with questions. Qualifiers: Chest pain type: unspecified Qualified Code(s): R07.9 - Chest pain, unspecified (2) SVT (supraventricular tachycardia) Current Visit: Yes Status: Acute Patent found to have iintermittent SVT. 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 Armijo, likely AVNRT. Atenolol increased and changed to toprol xl starting tomorrow. Okay for d/c home with toprol xl. Out-pt EP referral will be coordinated. . Discussion w patient/family: The assessment and plan as outlined above was discussed with the patient and/or family members who expressed understanding and agreement. All questions were ans wered. Thank you for involving us in the care of your patient. Please call with any questions. Objective Vital Signs, Last 4 Hours Temp Pulse Resp BP Pulse Ox 11/16/18 07:36 98.5 F 91 15 149/97 96 Results 11/16/18 03:39 11/16/18 03:39 Lab Results 11/16/18 11/16/18 03:39 03:39 WBC 6.3 Hgb 10.6 L Hct 34.4 L Plt Count 279 Sodium 137 Potassium 3.8 Chloride 100 Carbon Dioxide 29 BUN 15 Creatinine 0.86 Glucose 334 H Calcium 9.0 Consult Discharge Plan - Plan Additional Instructions: Patient has endorsed suicidal thoughts without a plan while in [place]. Recommend placing him on suicide precautions per snf protocol for this. Also recommend having said a [facility] see him. Psychiatry at [place] recommended he be started on 20 mg of Prozac daily and this be increased to 40 mg in 2 weeks. Referrals: NONE,PCP [Primary Care Provider] -
[2018-11-16 12:10] VITALS: BP 152/89
--- NOTE | 2018-11-16 13:03 | Discharge Summary ---
- NOTES TO OUTPATIENT PROVIDER Notes to Outpatient Provider: F/u with PCP within a week. F/u with Dr. Bruce within 2-3 months. Date of Encounter: 11/16/18 Time of Encounter: 13:01 - Discharge Diagnosis (1) Chest pain Priority: Primary Status: Acute Qualifiers: Chest pain type: unspecified Qualified Code(s): R07.9 - Chest pain, unspecified (2) Major depressive disorder Priority: Secondary Status: Chronic (3) PTSD (post-traumatic stress disorder) Priority: Secondary Status: Chronic (4) Diabetes Priority: Secondary Status: Chronic Qualifiers: Diabetes mellitus type: type 2 Diabetes mellitus ocean transportation intermediary insulin use: without ocean transportation intermediary use Diabetes mellitus complication status: without complication Qualified Code(s): E11.9 - Type 2 diabetes mellitus without complications (5) Hypertension Priority: Secondary Status: Chronic Qualifiers: Hypertension type: essential hypertension Qualified Code(s): I10 - Essential (primary) hypertension (6) DVT prophylaxis Priority: Primary Status: Acute (7) SVT (supraventricular tachycardia) Priority: Primary Status: Acute Hospital course: Mr. Yanez is a 57 year old male with history of hypertension and diabetes presented to ED for onset of chest pain that started at 9 am today. Patient states it is a squeezing sensation that is substernal with radiation to left arm with some numbness and tingling, brief shortness of breath, and diaphoresis. [facility] and his heart rate was checked there and it was reported to be 202 bpm and so was given 50 mg of atenolol, which is higher than his 25 mg BID dose. Patient upon arrival has a normal heart rate and blood pressure. Initial troponin was negative and an ECG showed normal sinus rhythm. Patient states he currently has no chest pain. Troponin was cycled, it was slightly elevated at 0.05. An echocardiograms were performed which showed a normal LV ejection fraction without obvious structural disease. Stress test was performed which is negative for ischemia, but a small sized, moderate intensity, fixed basal inferolateral defect was detected which could be due to a prior infarct. On the second hospital day, telemetry showed one episode of tachycardia with heart rate around 160, EKG was performed at that time, adenosine IV was administered and the arrhythmia was converted back to sinus rhythm. Cardiology was consulted, arrhythmia could be AVNRT. Dose of atenolol was increased, metoprolol was started. Patient is discharged home today, he will follow up with Dr. Bruce within 2-3 months. Discharge discussed with: patient Time spent discussing smoking cessation with patient: more than 10 minutes - Time Spent with Patient Total time spent providing and/or coordinating discharge services: Time spent: Greater than 30 minutes - Discharge Medications Prescriptions: New FLUoxetine HCl [Prozac] 20 mg PO DAILY #30 capsule Atenolol [Tenormin] 50 mg PO BID #60 tablet Metoprolol XL (24 HR) Succ [Toprol Xl] 100 mg PO DAILY #30 tab.er.24h Continued Omeprazole [PriLOSEC] 20 mg PO DAILY Aspirin [Lo-Dose Aspirin EC] 81 mg PO DAILY Metformin HCl 1,000 mg PO BID GlipiZIDE [Glucotrol] 5 mg PO BIDWM amLODIPine [Norvasc] 5 mg PO DAILY Atorvastatin Calcium [Lipitor] 80 mg PO HS Buspirone HCl [Buspar] 5 mg PO TID Cholecalciferol (D-3) [Vitamin D] 1,000 unit PO DAILY hydroCHLOROthiazide [Hydrochlorothiazide] 12.5 mg PO DAILY Lisinopril [Zestril] 40 mg PO DAILY Prazosin [Minipress] 3 mg PO HS Discontinued Atenolol [Tenormin] 25 mg PO DAILY PRN PRN Reason: PALPITATIONS Home Medications: Aspirin [Lo-Dose Aspirin EC] 81 mg PO DAILY 11/13/18 [History] GlipiZIDE [Glucotrol] 5 mg PO BIDWM 11/13/18 [History] Metformin HCl 1,000 mg PO BID 11/13/18 [History] Omeprazole [PriLOSEC] 20 mg PO DAILY 11/13/18 [History] Atorvastatin Calcium [Lipitor] 80 mg PO HS 11/14/18 [History] Buspirone HCl [Buspar] 5 mg PO TID 11/14/18 [History] Cholecalciferol (D-3) [Vitamin D] 1,000 unit PO DAILY 11/14/18 [History] Lisinopril [Zestril] 40 mg PO DAILY 11/14/18 [History] Prazosin [Minipress] 3 mg PO HS 11/14/18 [History] amLODIPine [Norvasc] 5 mg PO DAILY 11/14/18 [History] hydroCHLOROthiazide [Hydrochlorothiazide] 12.5 mg PO DAILY 11/14/18 [History] Atenolol [Tenormin] 50 mg PO BID #60 tablet 11/16/18 [Rx] FLUoxetine HCl [Prozac] 20 mg PO DAILY #30 capsule 11/16/18 [Rx] Metoprolol XL (24 HR) Succ [Toprol Xl] 100 mg PO DAILY #30 tab.er.24h 11/16/18 [Rx] Allergies/Adverse Reactions: Allergy/AdvReac Type Severity Reaction Status Date / Time No Known Allergies Allergy Verified 11/13/18 10:34 Date of admission: 11/13/18 11:32 Primary care physician: PCP NONE Consults: 11/14/18 08:15 Consult to Cardiology [CONS] Routine Comment: Consulting Provider: Card[facility] [place] Reason for Consult: elevated trop, chest pain Call Completed: Yes 11/14/18 09:24 Consult to Psychiatry [CONS] Routine Consulting Provider: Psychiat[facility] [place] Reason consult: Psychosis Anticipated date of discharge: 11/16/18 - Constitutional Vitals: Temp Pulse Resp BP Pulse Ox 98.6 F 60 15 152/89 98 11/16/18 12:07 11/16/18 12:07 11/16/18 12:07 11/16/18 12:07 11/16/18 12:07 General appearance: Present: A&O X 3, obese Exam: PHYSICAL EXAMINATION: GENERAL APPEARANCE: The patient is alert, oriented and in no acute distress. HEENT: Head is normocephalic. The sinuses are nontender. Pupils are equal and reactive. The nares are patent. Oropharynx clear without lesions. NECK: Supple without lymphadenopathy. HEART: Regular rate and rhythm. LUNGS: No crackles or wheezes are heard. ABDOMEN: Soft, nontender, nondistended with good bowel sounds heard. Inguinal area is normal. EXTREMITIES: Without cyanosis, clubbing or edema. NEUROLOGICAL: Gross nonfocal. SKIN: Warm and dry without any rash. - Patient Status Disposition: Home, Self-Care Condition: Fair Functional capacity at discharge: independent ambulation Overall status at discharge: patient is progressing back to baseline - Discharge Instructions Follow Up With: NONE,PCP [Primary Care Provider] - Additional Instructions: Patient has endorsed suicidal thoughts without a plan while in [place]. Recommend placing him on suicide precautions per [facility] protocol for this. Also recommend having said a [facility] see him. Psychiatry at [place] recommended he be started on 20 mg of Prozac daily and this be increased to 40 mg in 2 weeks. - Diet and Activity Activity: increase activity as tolerated Diet: diabetic diet, low fat, low cholesterol, low salt diet
--- NOTE | 2018-11-16 13:40 | Electrocardiograph Report ---
[address] [address] Test Date: 2018-11-15 Pat Name: Jomar Yanez Department: 113 Room: 3B Gender: M Mohel: : 1960 Requested By: Clarita Jimenez Order Number: [id number] Reading MD: Anthony Boggs Measurements Intervals [place] Rate: 161 P: SD: 0 QRS: -47 QRSD: 129 T: 55 QT: 277 QTc: 366 Interpretive Statements ATRIAL FLUTTER/TACHYCARDIA WITH RAPID VENTRICULAR RESPONSE MARKED LEFT AXIS DEVIATION LOSS OF LEAD V6 RATE RELATED ST CHANGES Electronically Signed On 11-16-2018 13:38:35 EDT by Anthony Boggs
[2018-11-17] MEDS ORDERED: Metoprolol XL (24 HR) Succ 50 MG TAB.ER.24H PO SCH (09:00)
== END 2018-11-16 13:53 | disposition home or self-care (01) ==
LOC: EMEROOARM 10:26 → 3BNU 10:26
PROVIDERS: ADMIT Student in an Organized Health Care Education/Training Program; ATTEND Student in an Organized Health Care Education/Training Program